=== PATIENT | female | born 1960 | race Caucasian/White ===

== ENCOUNTER → 2016-10-22 | Outpatient (CLI) | payer OTHER ==
[~2016-10-22] MED LIST: BUSPAR 5MG TABLE5 MG PO; CHOLESTYRAMINE L4 GM PO; CYMBALTA60 MG PO; PANTOPRAZOLE SO40 MG PO
== END ==
DX: Z12.31 Encounter for screening mammogram for malignant neoplasm of breast (principal)
CPT/HCPCS: G0202

== ENCOUNTER → 2017-02-05 | Outpatient (CLI) | payer OTHER | LOC: NM 08:56 | DX: R07.9 Chest pain, unspecified (principal); R93.1 Abnormal findings on diagnostic imaging of heart and coronary circulation | CPT/HCPCS: 78452; 93017; A9502; J2785 ==

== ENCOUNTER → 2017-02-07 | Day surgery (SDC) | payer OTHER ==
[~2017-02-07] VITALS: Ht 157.5 cm; Wt 79.8 kg
== END | disposition home or self-care (01) ==
LOC: OR 07:13
PROVIDERS: Internal Medicine Gastroenterology
PROC: 0DB38ZX Excision of Lower Esophagus, Via Natural or Artificial Opening Endoscopic, Diagnostic (ICD-10-PCS; principal; 2017-02-07 11:45)
DX: K22.10 Ulcer of esophagus without bleeding (principal); K44.9 Diaphragmatic hernia without obstruction or gangrene; E66.9 Obesity, unspecified; K52.9 Noninfective gastroenteritis and colitis, unspecified; F17.290 Nicotine dependence, other tobacco product, uncomplicated; M19.90 Unspecified osteoarthritis, unspecified site; M79.7 Fibromyalgia; Z79.899 Other long term (current) drug therapy; Z90.49 Acquired absence of other specified parts of digestive tract
CPT/HCPCS: J2250; J3010; J7030

== ENCOUNTER → 2022-01-18 | Outpatient (CLI) | payer MEDICARE | LOC: CT 07:16 | DX: K55.1 Chronic vascular disorders of intestine (principal); I77.811 Abdominal aortic ectasia; I72.3 Aneurysm of iliac artery; I70.8 Atherosclerosis of other arteries | CPT/HCPCS: 36415; 82565; 84520; Q9967 ==

== ENCOUNTER → 2022-03-07 | Outpatient (CLI) | payer MEDICARE | LOC: KOH-I 12:07 | DX: M25.551 Pain in right hip (principal); M54.41 Lumbago with sciatica, right side; M47.816 Spondylosis without myelopathy or radiculopathy, lumbar region; M16.0 Bilateral primary osteoarthritis of hip; M47.22 Other spondylosis with radiculopathy, cervical region | CPT/HCPCS: 72040; 72100; 73502 ==